=== PATIENT | male | born 2000 | race Caucasian/White ===

== ENCOUNTER 2023-12-29 16:52 | Inpatient (IN) ==
[2023-12-29] MEDS: SODIUM CHLORIDE 0.9% 1,000 ML IV SCH ×2 (17:53→22:32)
--- NOTE | 2023-12-29 18:04 | XRay Report ---
XR chest 1V portable HISTORY: 23 years-old Male syncope acute syncope COMPARISON: None TECHNIQUE: AP view of the chest FINDINGS: Cardiomediastinal and hilar silhouettes are within normal limits. No pneumothorax, pleural effusion o r airspace consolidation. Bones of the chest appear grossly intact. IMPRESSION: No acute process. ACT 112: Negative or not required by law. The above report was generated using voice recognition software. It may contain grammatical, syntax o r spelling errors. Electronically signed by: Chito Myles M.D. 12/29/2023 6:02 PM
--- NOTE | 2023-12-29 18:08 | Emergency Department Note ---
Impression & Plan Upper GI bleed, Pre-syncope ED Provider Note NAME: GALLITO QUIJANO AGE: 23 SEX: M : 2000 ARRIVES VIA: Ambulance INFORMANT: Patient, ED PROVIDER(S): Aieme Lopez MD CHIEF COMPLAINT: Syncope/diarrhea HPI: This is a 23-year-old male with history of gastric ulcers, ADHD presenting for syncope. Patient states that he started with nausea and vomiting since last . He was at home and feeling better, trouble with back or Dodie. Last night began having episodes of diarrhea. He notes that send he had 1 episode of what appeared to be black loose stools. He then had 3 episodes total today. He went to [facility] to be seen and was being evaluated he thinks that he passed out for about 3 seconds. He said he felt hot while he was in the building, took over the sweatshirt and then noticed he felt a warm sensation after feeling lightheaded. He then passed out for 3 seconds was cautioned not hit his head. No chest pain or shortness of breath. No palpitations. ROS: See above HPI for pertinent positives & negatives. A total of 10 systems reviewed and were otherwise negative. PAST MEDICAL HISTORY: See Below PAST SURGICAL HISTORY: See Below FAMILY HISTORY: See Below SOCIAL HISTORY: See Below HOME MEDICATIONS: See Below ALLERGIES: See Below VITALS: See Below PHYSICAL EXAMINATION: General: resting comfortably in no acute distress Head: Normocephalic and atraumatic Eyes: Normal inspection, extraocular muscles intact Ear, nose, throat: Normal external exam Neck: Normal range of motion Respiratory: lungs clear to auscultation bilaterally Cardiovascular: Regular rate/rhythm, no murmur GI: soft, nontender, no guarding or rebound Extremities: nontender, moves all extremities Neuro: The patient awake and alert, appropriately conversive, no focal deficits, symmetric faces Skin: Warm, dry, and intact MEDICAL DECISION MAKING: This is a 21-year-old male with history of gastric ulcers and GERD presenting for syncope. Patient thinks he may have had a presyncopal episode here but did not actually pass out. He otherwise was resting/sitting during both episodes of syncope. He notes diarrhea. He has felt better after getting fluids at [facility]. -Patient's blood work is reviewed showing an hemoglobin of 11.9, a 4+ point drop since his last visit to the ER at hemoglobin of 16 previously -Patient is Hemoccult positive on rectal exam -Chest Xray independently interpreted by me showing no pneumothorax, focal opacity, or pleural effusions. -Patient blood work otherwise reveals no electrolyte disturbances, BUN is significantly elevated at 47 concerning for GI bleed -Will give IV Protonix at this time -Otherwise discussed case with Dr. Alejandre who recommends admission and he will see the patient tomorrow in consultation -Patient accepted to hospitalist service for GI bleed with syncope Differential diagnosis: Blood loss anemia, GI bleed, orthostatic syncope ER treatment provided: See below Diagnostics interpreted by me: ECG: None Cardiac Monitoring: An order was placed for continuous cardiac monitoring. The monitor shows a rate of 101 with sinus rhythm. Laboratory studies: As stated above and show below. Imaging studies: See below. Past Med/Surg History Medical History (Updated 12/29/23 @ 22:33 by Aimee Lopez MD) ADHD GERD (gastroesophageal reflux disease) Pre-syncope Upper GI bleed Social History Smoking Status: Never smoker Tobacco Type: E-cigarettes / Vaping Hx Alcohol Use: Yes Hx Substance Use: No Preferred Language: Sinhala Security Manager Required: No Beliefs That Will Affect Care: None Current Living Situation: Other Current Living Situation Comment: room mates Feels Safe at Home: Yes Allergies Allergies Allergy/AdvReac Type Severity Reaction Status Date / Time Fish Containing Products Allergy Severe Anaphylaxis Verified 12/29/23 19:05 shellfish derived Allergy Severe Anaphylaxis Verified 12/29/23 19:05 Penicillins Allergy Unknown HAPPENED Verified 12/29/23 19:05 AN INFANT Home Meds Home Medications Medication Instructions Recorded Confirmed dextroamphetamine-amphetamine 10 10 mg PO QPM PRN HIGH STRESS DAYS 08/04/23 12/29/23 mg tablet (Adderall) dextroamphetamine-amphetamine ER 25 mg PO QAM 08/04/23 12/29/23 25 mg 24hr capsule,extend release epinephrine 0.3 mg/0.3 mL 0.3 mg IM DIRECTED PRN Allergic 12/29/23 12/29/23 injection, auto-injector Reaction Results & Data (ED) Vital Signs Vital Signs - 24 hr 12/29/23 17:00 12/29/23 17:04 12/29/23 17:09 Temperature 36.8 C Temperature Source Oral Pulse Rate 96 H 101 H Pulse Rate [Apical] 101 H Pulse Rate from SpO2 Sensor 102 H Pulse Rhythm [Apical] Regular Pulse Strength [Apical] Normal Respiratory Rate 16 18 21 Respiratory Effort / Characteristics Non-Labored Spontaneous Non-Labored Spontaneous Respiratory Depth Normal Normal Respiratory Pattern Regular Blood Pressure 123/88 Blood Pressure [Right Arm] 123/88 Blood Pressure Mean 99 Blood Pressure Mean [Right Arm] 99 Blood Pressure Position Sitting Blood Pressure Position [Right Arm] Sitting Pulse Oximetry 100 99 100 Oxygen Delivery Method Room Air Room Air Sepsis Recent Fever Within 48 Hours No Sepsis New/Unexplained Change in Mental Status No Sepsis Action Taken by Nursing No Action Required 12/29/23 17:10 12/29/23 17:19 12/29/23 17:20 Temperature Temperature Source Pulse Rate 104 H 96 H 83 Pulse Rate [Apical] Pulse Rate from SpO2 Sensor 104 H 83 Pulse Rhythm [Apical] Pulse Strength [Apical] Respiratory Rate 22 14 Respiratory Effort / Characteristics Respiratory Depth Respiratory Pattern Blood Pressure Blood Pressure [Right Arm] Blood Pressure Mean Blood Pressure Mean [Right Arm] Blood Pressure Position Blood Pressure Position [Right Arm] Pulse Oximetry 100 99 Oxygen Delivery Method Sepsis Recent Fever Within 48 Hours Sepsis New/Unexplained Change in Mental Status Sepsis Action Taken by Nursing 12/29/23 17:30 12/29/23 17:40 12/29/23 17:50 Temperature Temperature Source Pulse Rate 91 H 98 H 99 H Pulse Rate [Apical] Pulse Rate from SpO2 Sensor 90 95 H 99 H Pulse Rhythm [Apical] Pulse Strength [Apical] Respiratory Rate 20 22 24 Respiratory Effort / Characteristics Respiratory Depth Respiratory Pattern Blood Pressure Blood Pressure [Right Arm] Blood Pressure Mean Blood Pressure Mean [Right Arm] Blood Pressure Position Blood Pressure Position [Right Arm] Pulse Oximetry 99 100 100 Oxygen Delivery Method Sepsis Recent Fever Within 48 Hours Sepsis New/Unexplained Change in Mental Status Sepsis Action Taken by Nursing 12/29/23 18:00 12/29/23 18:10 12/29/23 18:20 Temperature Temperature Source Pulse Rate 92 H 102 H 104 H Pulse Rate [Apical] Pulse Rate from SpO2 Sensor 93 H 102 H 105 H Pulse Rhythm [Apical] Pulse Strength [Apical] Respiratory Rate 24 21 21 Respiratory Effort / Characteristics Respiratory Depth Respiratory Pattern Blood Pressure Blood Pressure [Right Arm] Blood Pressure Mean Blood Pressure Mean [Right Arm] Blood Pressure Position Blood Pressure Position [Right Arm] Pulse Oximetry 100 100 100 Oxygen Delivery Method Sepsis Recent Fever Within 48 Hours Sepsis New/Unexplained Change in Mental Status Sepsis Action Taken by Nursing 12/29/23 18:37 12/29/23 18:40 12/29/23 18:45 Temperature Temperature Source Pulse Rate 107 H 104 H Pulse Rate [Apical] 99 H Pulse Rate from SpO2 Sensor 104 H Pulse Rhythm [Apical] Pulse Strength [Apical] Respiratory Rate 22 20 18 Respiratory Effort / Characteristics Non-Labored Spontaneous Respiratory Depth Normal Respiratory Pattern Blood Pressure Blood Pressure [Right Arm] 141/86 H Blood Pressure Mean Blood Pressure Mean [Right Arm] 104 Blood Pressure Position Blood Pressure Position [Right Arm] Sitting Pulse Oximetry 100 100 Oxygen Delivery Method Room Air Sepsis Recent Fever Within 48 Hours Sepsis New/Unexplained Change in Mental Status Sepsis Action Taken by Nursing 12/29/23 18:45 12/29/23 18:45 12/29/23 18:50 Temperature Temperature Source Pulse Rate 99 H 103 H Pulse Rate [Apical] Pulse Rate from SpO2 Sensor 99 H 103 H Pulse Rhythm [Apical] Pulse Strength [Apical] Respiratory Rate 20 19 Respiratory Effort / Characteristics Respiratory Depth Respiratory Pattern Blood Pressure 141/86 H Blood Pressure [Right Arm] Blood Pressure Mean 94 Blood Pressure Mean [Right Arm] Blood Pressure Position Blood Pressure Position [Right Arm] Pulse Oximetry 100 100 Oxygen Delivery Method Sepsis Recent Fever Within 48 Hours Sepsis New/Unexplained Change in Mental Status Sepsis Action Taken by Nursing 12/29/23 19:00 12/29/23 19:10 12/29/23 19:27 Temperature Temperature Source Pulse Rate 125 H 104 H 117 H Pulse Rate [Apical] Pulse Rate from SpO2 Sensor Pulse Rhythm [Apical] Pulse Strength [Apical] Respiratory Rate 23 24 14 Respiratory Effort / Characteristics Respiratory Depth Respiratory Pattern Blood Pressure Blood Pressure [Right Arm] Blood Pressure Mean Blood Pressure Mean [Right Arm] Blood Pressure Position Blood Pressure Position [Right Arm] Pulse Oximetry Oxygen Delivery Method Sepsis Recent Fever Within 48 Hours Sepsis New/Unexplained Change in Mental Status Sepsis Action Taken by Nursing 12/29/23 19:27 12/29/23 19:30 12/29/23 19:40 Temperature Temperature Source Pulse Rate 96 H 101 H Pulse Rate [Apical] Pulse Rate from SpO2 Sensor 96 H 100 H Pulse Rhythm [Apical] Pulse Strength [Apical] Respiratory Rate 21 16 Respiratory Effort / Characteristics Respiratory Depth Respiratory Pattern Blood Pressure 125/78 Blood Pressure [Right Arm] Blood Pressure Mean 90 Blood Pressure Mean [Right Arm] Blood Pressure Position Blood Pressure Position [Right Arm] Pulse Oximetry 100 100 Oxygen Delivery Method Sepsis Recent Fever Within 48 Hours Sepsis New/Unexplained Change in Mental Status Sepsis Action Taken by Nursing 12/29/23 19:50 12/29/23 20:00 12/29/23 20:00 Temperature Temperature Source Pulse Rate 102 H 104 H Pulse Rate [Apical] Pulse Rate from SpO2 Sensor 101 H 101 H Pulse Rhythm [Apical] Pulse Strength [Apical] Respiratory Rate 20 20 Respiratory Effort / Characteristics Respiratory Depth Respiratory Pattern Blood Pressure 123/85 Blood Pressure [Right Arm] Blood Pressure Mean 93 Blood Pressure Mean [Right Arm] Blood Pressure Position Blood Pressure Position [Right Arm] Pulse Oximetry 100 100 Oxygen Delivery Method Sepsis Recent Fever Within 48 Hours Sepsis New/Unexplained Change in Mental Status Sepsis Action Taken by Nursing 12/29/23 20:10 12/29/23 20:20 12/29/23 20:30 Temperature Temperature Source Pulse Rate 99 H 101 H 97 H Pulse Rate [Apical] Pulse Rate from SpO2 Sensor 100 H 102 H 99 H Pulse Rhythm [Apical] Pulse Strength [Apical] Respiratory Rate 22 18 21 Respiratory Effort / Characteristics Respiratory Depth Respiratory Pattern Blood Pressure Blood Pressure [Right Arm] Blood Pressure Mean Blood Pressure Mean [Right Arm] Blood Pressure Position Blood Pressure Position [Right Arm] Pulse Oximetry 99 100 100 Oxygen Delivery Method Sepsis Recent Fever Within 48 Hours Sepsis New/Unexplained Change in Mental Status Sepsis Action Taken by Nursing 12/29/23 20:40 Temperature Temperature Source Pulse Rate 93 H Pulse Rate [Apical] Pulse Rate from SpO2 Sensor 101 H Pulse Rhythm [Apical] Pulse Strength [Apical] Respiratory Rate 19 Respiratory Effort / Characteristics Respiratory Depth Respiratory Pattern Blood Pressure 109/87 Blood Pressure [Right Arm] Blood Pressure Mean 94 Blood Pressure Mean [Right Arm] Blood Pressure Position Blood Pressure Position [Right Arm] Pulse Oximetry 100 Oxygen Delivery Method Room Air Sepsis Recent Fever Within 48 Hours Sepsis New/Unexplained Change in Mental Status Sepsis Action Taken by Nursing Laboratory Data 12/29/23 17:16 12/29/23 17:16 Lab Results 12/29/23 12/29/23 12/29/23 Range/Units 17:16 17:19 17:46 WBC 8.54 (4.8-10.8) K/ul RBC 4.15 L (4.70-6.10) M/uL Hgb 11.9 L (14.0-18.0) g/dl Hct 34.8 L (42.0-52.0) % MCV 83.9 (80.0-100.0) fL MCH 28.7 (25.0-34.0) pg MCHC 34.2 (32.0-36.0) g/dL RDW Std Deviation 36.6 (36.4-46.3) fL RDW Coeff of [place] 12.0 (11.5-14.5) % Plt Count 203 (130-400) K/uL MPV 11.0 (9.4-12.4) fL Immature Gran % (Auto) 0.8 % Neut % (Auto) 73.9 % Lymph % (Auto) 18.3 % [place] % (Auto) 5.4 % Eos % (Auto) 0.8 % Baso % (Auto) 0.8 % Neut # (Auto) 6.31 (1.40-6.50) K/uL Lymph # (Auto) 1.56 (1.20-3.40) K/uL [place] # (Auto) 0.46 (0.11-0.59) K/uL Eos # (Auto) 0.07 (0.00-0.50) K/uL Baso # (Auto) 0.07 (0.00-0.20) K/uL Immature Gran # (Auto) 0.07 (0.01-0.20) K/uL PT 11.5 (9.0-12.0) Seconds INR 1.1 (0.9-1.1) Sodium 135 L (136-145) mmol/L Potassium 4.8 (3.5-5.1) mmol/L Chloride 105 (98-107) mmol/L Carbon Dioxide 25 (21-32) mmol/L Anion Gap 5 (3-11) BUN 47 H (6-23) mg/dl Creatinine 0.99 (0.6-1.4) mg/dl Est Cr Clr Drug Dosing 113.2 ml/min Est GFR ( Amer) 124.8 ml/min Est GFR (Non-Af Amer) 107.7 ml/min BUN/Creatinine Ratio 47.5 H (10-20) Glucose 83 (70-99(Fasting)) mg/dl POC Glucose 108 H (70-99) mg/dl Calcium 8.2 L (8.6-10.3) mg/dl Magnesium 1.8 (1.7-2.4) mg/dl Total Bilirubin 0.8 (0.2-1.0) mg/dl AST 17 (13-39) U/L ALT 19 (7-52) U/L Alkaline Phosphatase 45 (34-104) U/L Troponin I High Sens 2.3 (0-20) pg/ml Total Protein 6.8 (6.0-8.3) gm/dl Albumin 4.4 (3.4-5.0) gm/dl Globulin 2.4 L (2.5-4.0) gm/dl Albumin/Globulin Ratio 1.8 (0.9-2) Urine Color Urine Appearance (Clear) Urine pH (4.5-7.5) Ur Specific [place] (1.000-1.030) Urine Protein (Negative) Urine Glucose (UA) (Negative) Urine Ketones (Negative) Urine Blood (Negative) Urine Nitrite (Negative) Urine Bilirubin (Negative) Urine Urobilinogen (Negative) Ur Leukocyte Esterase (Negative) Blood Type O Positive Antibody Screen NEGATIVE 12/29/23 Range/Units 18:30 WBC (4.8-10.8) K/ul RBC (4.70-6.10) M/uL Hgb (14.0-18.0) g/dl Hct (42.0-52.0) % MCV (80.0-100.0) fL MCH (25.0-34.0) pg MCHC (32.0-36.0) g/dL RDW Std Deviation (36.4-46.3) fL RDW Coeff of [place] (11.5-14.5) % Plt Count (130-400) K/uL MPV (9.4-12.4) fL Immature Gran % (Auto) % Neut % (Auto) % Lymph % (Auto) % [place] % (Auto) % Eos % (Auto) % Baso % (Auto) % Neut # (Auto) (1.40-6.50) K/uL Lymph # (Auto) (1.20-3.40) K/uL [place] # (Auto) (0.11-0.59) K/uL Eos # (Auto) (0.00-0.50) K/uL Baso # (Auto) (0.00-0.20) K/uL Immature Gran # (Auto) (0.01-0.20) K/uL PT (9.0-12.0) Seconds INR (0.9-1.1) Sodium (136-145) mmol/L Potassium (3.5-5.1) mmol/L Chloride (98-107) mmol/L Carbon Dioxide (21-32) mmol/L Anion Gap (3-11) BUN (6-23) mg/dl Creatinine (0.6-1.4) mg/dl Est Cr Clr Drug Dosing ml/min Est GFR ( Amer) ml/min Est GFR (Non-Af Amer) ml/min BUN/Creatinine Ratio (10-20) Glucose (70-99(Fasting)) mg/dl POC Glucose (70-99) mg/dl Calcium (8.6-10.3) mg/dl Magnesium (1.7-2.4) mg/dl Total Bilirubin (0.2-1.0) mg/dl AST (13-39) U/L ALT (7-52) U/L Alkaline Phosphatase (34-104) U/L Troponin I High Sens (0-20) pg/ml Total Protein (6.0-8.3) gm/dl Albumin (3.4-5.0) gm/dl Globulin (2.5-4.0) gm/dl Albumin/Globulin Ratio (0.9-2) Urine Color Yellow Urine Appearance Clear (Clear) Urine pH 6.0 (4.5-7.5) Ur Specific [place] 1.020 (1.000-1.030) Urine Protein Negative (Negative) Urine Glucose (UA) Negative (Negative) Urine Ketones 1+ H (Negative) Urine Blood Negative (Negative) Urine Nitrite Negative (Negative) Urine Bilirubin Negative (Negative) Urine Urobilinogen Negative (Negative) Ur Leukocyte Esterase Negative (Negative) Blood Type Antibody Screen Administered Medications Discontinued Medications Sodium Chloride (Nss) 1,000 mls @ 999 mls/hr IV .Q1H1M ALISHA Stop: 12/29/23 18:30 Last Infusion: 12/29/23 19:01 Dose: Infused Documented By: Admin: 12/29/23 17:53 Dose: 999 mls/hr Documented By: JONAHTAN Pantoprazole Sodium 40 mg/ (Syringe) 10 mls @ 5 mls/min IV NOW ONE Stop: 12/29/23 19:09 Last Admin: 12/29/23 19:27 Dose: 5 mls/min Documented By: AYLIN Imaging Data Radiologist's Impression: Chest X-Ray 12/29/23 17:25 XR chest 1V portable HISTORY: 23 years-old Male syncope acute syncope COMPARISON: None TECHNIQUE: AP view of the chest FINDINGS: Cardiomediastinal and hilar silhouettes are within normal limits. No pneumothorax, pleural effusion or airspace consolidation. Bones of the chest appear grossly intact. IMPRESSION: No acute process. ACT 112: Negative or not required by law. The above report was generated using voice recognition software. It may contain grammatical, syntax or spelling errors. Electronically signed by: Chito Myles M.D. 12/29/2023 6:02 PM Discharge Plan Visit Data Chief Complaint: Syncope Stated Complaint: AB PAIN, GI SYMTOMS ED Provider: Aimee Lopez Discharge Problem: Upper GI bleed, Pre-syncope Patient Disposition: Admitted As Inpatient Discharge Instructions Interventions: ED Discharge Assessment Last Done: 12/29/23 21:44
[2023-12-29 18:32] LABS: Basophils # (auto) 0.07 K/uL (0.00-0.20); Basophils % (auto) 0.8 %; Eosinophils # (auto) 0.07 K/uL (0.00-0.50); Eosinophils % (auto) 0.8 %; Hematocrit (blood only) 34.8 % (42.0-52.0); Hemoglobin 11.9 g/dl (14.0-18.0); Immature Granulocytes # (auto) 0.07 K/uL (0.01-0.20); Immature Granulocytes % (auto) 0.8 %; Lymphocytes # (auto) 1.56 K/uL (1.20-3.40); Lymphocytes % (auto) 18.3 %; Mean Corpuscular Hemoglobin 28.7 pg (25.0-34.0); Mean Corpuscular Hgb Conc 34.2 g/dL (32.0-36.0); Mean Corpuscular Volume 83.9 fL (80.0-100.0); Monocytes # (auto) 0.46 K/uL (0.11-0.59); Monocytes % (auto) 5.4 %; Neutrophils # (auto) 6.31 K/uL (1.40-6.50); Neutrophils % (auto) 73.9 %; Platelet Count 203 K/uL (130-400); RDW Standard Deviation 36.6 fL (36.4-46.3); Red Blood Count 4.15 M/uL (4.70-6.10); White Blood Count 8.54 K/ul (4.8-10.8)
[2023-12-29 18:45] LABS: Albumin Globulin Ratio 1.8 (0.9-2); Albumin Level 4.4 gm/dl (3.4-5.0); BUN Creatinine Ratio 47.5 (10-20); Bilirubin,Total 0.8 mg/dl (0.2-1.0); Calcium 8.2 mg/dl (8.6-10.3); Creatinine Clr Calc Pharmacy 113.2 ml/min; Est GFR (African American) 124.8 ml/min; Est GFR (Non-African American) 107.7 ml/min; Globulin 2.4 gm/dl (2.5-4.0); Magnesium 1.8 mg/dl (1.7-2.4); Potassium 4.8 mmol/L (3.5-5.1); Total Protein 6.8 gm/dl (6.0-8.3)
[2023-12-29 18:49] LABS: Troponin I High Sensitivity 2.3 pg/ml (0-20)
[2023-12-29 18:55] LABS: INR 1.1 (0.9-1.1); Prothrombin Time 11.5 Seconds (9.0-12.0)
[2023-12-29 19:00] LABS: Appearance Urine Clear (Clear); Bilirubin Urine Negative (Negative); Blood Urine Negative (Negative); Color Urine Yellow; Glucose Urine UA Negative (Negative); Ketones Urine 1+ (Negative); Leukocyte Esterase Urine Negative (Negative); Nitrite Urine Negative (Negative); Protein Urine Negative (Negative); Urobilinogen Urine Negative (Negative)
[2023-12-29] MEDS: PANTOprazole 40 MG in SYRINGE 0 ML IV ONE (19:27)
--- NOTE | 2023-12-29 19:58 | History & Physical Report ---
"Date of Service December 29, 2023 Assessment & Plan (1) Upper GI bleed: (2) Pre-syncope: (3) ADHD: (4) GERD (gastroesophageal reflux disease): Plan Summary: Deyvi is a 23M with PMH of GERD, gastric ulcers, and ADHD (on Adderall) who presents for black, loose stools and a pre-syncopal episode and is being admitted for a presumed UGIB. ED Course: 1L NSS, IV Pantoprazole Upper GI Bleed | Hematemesis/Melanotic Stools * Potential esophageal ulcer, patient w/ odynophagia, hx of GERD, and dysphagia * Consideration also given to peptic ulcers vs Bibi silvia tear as patient notes hematemesis after episodes of repeated emesis * Hemodynamically stable but hypertensive/tachycardic * CBC indicated Hgb Drop from 16.2 to 11.9 * Hemoccult positive * Continue Fluid Resuscitation w/ mIVF, s/p 1L NSS in ED * Transfuse for Hgb < 7 or symptomatic anemia * Continue GI Ppx w/ IV Pantoprazole 40 mg BID * Patient not actively receiving any anticoagulants/antiplatelet medications, avoid chemical DVT Ppx * GI Consulted, Dr. Alejandre to see 12/29, appreciate recommendations Pre-Syncopal Event * Likely a/w of UGIB & acute blood loss anemia, management largely as above * Continue IVF * Monitor via telemetry Chronic Conditions: * ADHD - Continue home Adderall Code Status:Full Diet:NPO IVF:mIVF DVT PPx:SCD/ambulation CM: None Dispo: Tele History of Present Illness Chief Complaint: Pre-syncopal Episode Primary Care Provider: [facility] Deyvi is a 23M with PMH of gastric ulcers and ADHD (on Adderall) who presents for black, loose stools and a pre-syncopal episode and is being admitted for a presumed UGIB. ED Course: 1L NSS, IV Pantoprazole HPI: Last 12/24/23 started throwing up, thought he ate some bad food, noted he was throwing up small amounts of bright red blood. He went home to his parent's for the weekend (in [place], [place]) and remained nauseous though out the weekend. Today, he woke up and was having black diarrhea (4-5 episodes today). When he went to [facility] due to the black stools, and noted he became very hot/diaphoretic and had a pre-syncopal event, did not fully pass out or fall and hit his head. Received fluids at [facility] but was sent from [facility] to [facility] via ambulance. Feels like he has been increasingly bloated the last 2-3 days with increasing upper abdominal pressure. No lightheadedness or dizziness prior to presenting to [facility]. Notes he has not been eating very much, and hasn't eaten more than a protein bar today. Continued to hydrate well. Notes hx of GERD/Gastric ulcers, had EGD in 11/06/2020 - they found unspecified ulcers at this time, but it was said to be minimal. Took PO medication for 30 days and things have been good since then. Has had no symptoms since 2020. Had gotten EGD in 2020 because he was feeling like things are getting stuck in his throat. No prior episodes of dark black stools before. Will have episodes of hematemesis he has a gagging/dysphagia episode where he throws up/coughs alot. He notes that he can tell when its going to happen because his throat will feel raw. Allergies: Severe anaphylactic fish allergy, requires EpiPen Allergies Allergy/AdvReac Type Severity Reaction Status Date / Time Fish Containing Products Allergy Severe Anaphylaxis Verified 12/29/23 19:05 shellfish derived Allergy Severe Anaphylaxis Verified 12/29/23 19:05 Penicillins Allergy Unknown HAPPENED Verified 12/29/23 19:05 AN Home Medications Medication Instructions Recorded Confirmed Type dextroamphetamine-amphetamine 10 10 mg PO QPM PRN HIGH STRESS DAYS 08/04/23 12/29/23 History mg tablet (Adderall) dextroamphetamine-amphetamine ER 25 mg PO QAM 08/04/23 12/29/23 History 25 mg 24hr capsule,extend release epinephrine 0.3 mg/0.3 mL 0.3 mg IM DIRECTED PRN Allergic 12/29/23 12/29/23 History injection, auto-injector Reaction Past Med/Surg History Medical History Encounter for pre-operative examination ADHD GERD (gastroesophageal reflux disease) Pre-syncope Upper GI bleed Social History Smoking Status: Never smoker Tobacco Type: E-cigarettes / Vaping Hx Alcohol Use: Yes Hx Substance Use: No Preferred Language: Sami Communication Ability: Effective Shellfish Processing Machine Tender Required: No Beliefs That Will Affect Care: None Current Living Situation: Other Current Living Situation Comment: room mates Feels Safe at Home: Yes Assistive Devices: None Physical Exam Physical Exam: Gen: NAD, alert, interactive HEENT: Supple, no LAD, no thyromegaly, no JVD Resp:Non-labored, no wheezing/rhonchi/rales, CTAB CV: tachycardic, regular rate, normal S1/S2, no M/R/G Abd: Soft, non-distended, no TTP, normoactive bowels, no masses Extr: 2+ dp bilaterally, no edema Skin: No rashes lesions or erythema Results & Data Results & Data Vital Signs (Past 12 Hours) Vital Signs Temp Pulse Pulse Resp BP BP Pulse Ox 12/29/23 18:45 99 H 18 141/86 H 100 12/29/23 17:19 96 H 12/29/23 17:04 36.8 C 96 H 18 123/88 99 12/29/23 17:00 101 H 16 123/88 100 O2 Del Method 12/29/23 18:45 Room Air 12/29/23 17:19 12/29/23 17:04 Room Air 12/29/23 17:00 Room Air Supervising Physician Co-Signing Physician Notes Attending addendum: I have physically seen this patient, have supervised the medical residents activities, and agree with the H&P unless as otherwise noted. Assessment and Plan: Upper GI bleed/history of gastric ulcers- Differential including but not limited to: Esophageal ulcers, gastric ulcers, gastritis, esophagitis, Bibi-Carlson tear Admit to telemetry bed N.p.o. No history of significant alcohol use/abuse Protonix 40 mg IV twice daily H&H every 4 hours Type and screen Hemoglobin 11.9 on admission, with most recent prior 16.2 Vital signs/blood pressure/heart rate stable IV fluids as noted, status post 1 L normal saline from the ED, and to receive additional 1 L bolus now, then 80 mL/h Consult gastroenterology ADHD- Hold Adderall n.p.o. Resident Activity Tracking Resident Involvement: Resident Care Provided Care Provided: Adult Hospital Medicine (Night)"
[2023-12-29] MEDS ORDERED: EPINEPHrine ADULT AUTO-INJECT 0.3 MG SYR IM PRN (22:14)
[2023-12-29] MEDS ORDERED: ACETAMINOPHEN 325 MG TAB PO PRN (22:14)
[2023-12-29] MEDS ORDERED: ONDANSETRON INJ 2 MG/ML 2 ML VIAL IV PRN (22:14)
[2023-12-29] MEDS: PANTOprazole 40 MG in SYRINGE 0 ML IV SCH (22:53)
[2023-12-30] MEDS: DEXTROAMPHETAMINE/AMPHETAMINE ER 5 MG CAP PO SCH (05:42)
[2023-12-30] MEDS: DEXTROAMPHETAMINE/AMPHETAMINE ER 10 MG CAP PO SCH (05:42)
--- NOTE | 2023-12-30 07:39 | Hospitalist Progress Note ---
Date of Service December 30, 2023 Assessment & Plan (1) Upper GI bleed: Plan: Summary: Deyvi is a 23M with PMH of GERD, gastric ulcers, and ADHD (on Adderall) who presents for black, loose stools and a pre-syncopal episode and is being admitted for a presumed UGIB. Reported melanic stools x 4 on 12/28, hematemesis x 1. * Patient reported prior hx EGD, inquired for results and his mother sent these given questioned about hx of possible eosinophilic asthma given prior ER visit w/ swelling/shellfish and reports of feeling like food will get stuck at times (resolved with sip of water) * Review prior EGD result sent by his mother --> DID have hx eosinophilic e sophagitis, never had follow up or believes had dilation in the past. Notified GI prior to EGD regarding such * He denied any recent heavy NSAID use but did report he took some Advil with r ecent strep infection ~1 week after THON. Last etoh ~1-2 days ago but reported hadn't drank in about a month and a half prior to that but was drinking 1- 2x/weekly On admission, tachycardic/HTN, LFTs wnl. WBC 8.5k, UA w/ 1+ ketones. CXR without acute process. No pleuritic CP or hypoxia to suggest PE Hgb 11.9 on admission (baseline ~16) Fecal occult POSITIVE s/p 1L NSS in ER, Protonix IV x 1 1L IVF overnight ordered, placed on NS @ 80cc/hr while NPO this morinng for EGD Continue Protonix IV BID NPO IVF NS @ 80cc/hr while NPO Hgb 10.2 on AM labs, suspect some aspect of dilution from IVF on admission, no further bleeding reported GI consulted s/p EGD with Dr Castano 12/29 -- two medium non-bleeding aleena carlson tears, one with stigmata of recent bleeding found. Injected with epi for hemostasis. These tears were in position of "kissing ulcers" seen with pill ulcers. -- Impression: esophageal mucosal changes seconday to eosinophilic esophagitis, aleena-carlson tear injected. normal stomach Recs to continue PPI BID, added liquid carafate QID CM navigator arranging outpt f/u allergy/immunology given his EoE for further work up Clear liquid diet ordered, monitoring overnight Labs in AM Unfortunately will not be able to travel to [place] tomorrow but is hopeful for discharge if stable. Will need strict avoidance of NSAIDs and alcohol at discharge (2) Pre-syncope: Plan: suspected 2nd to dehydration/from nausea/vomiting/diarrhea, Aleena carlson tear as above Had been NSR/sinus tachycardia on monitor. No CP/SOB reported IVF/Protonix as above no further syncope reported and has been ambulating to the bathroom this morning continued telemetry monitoring overnight (3) Aleena-Carlson tear: Plan: as above, s/p EGD with GI and injection with epi continue PPI, carafate added and avoidance of alcohol/NSAIDs encouraged (4) Eosinophilic esophagitis: Plan: hx of such on EGD from 2020 and has had on/off issues w/ feelings of meats getting stuck at times but improved recently. continue PPI BID at dc as well as carafate evidence for ongoing EoE on EGD as above, arranging for allergy f/u at discharge w/ CM (5) GERD (gastroesophageal reflux disease): Plan: as above (6) ADHD: Plan: Continue home Adderall Plan DVT proph: SCDs, ambulation. chemoproph contraindicated given above. No evidence for DVT clear liquids post-EGD, monitoring overnight. potential dc tomorrow 12/30 Admission and Anticipated Discharge Date Admission Date: December 29, 2023 Supervising Physician Co-Signing Physician Notes The patient was not seen by me. The chart was reviewed. Case discussed with CINTIA Carrion. Agree with assessment and plan Subjective Patient evaluated this afternoon, resting in bed, no acute distress. Had been up multiple times to urinate, no syncope or dizziness reported. HR goes up to 100s w/ standing. No CP/SOb. Reported emesis x 1 w/ blood tinge but wasn't sure from possible irritation. Had been urinating and had mixed w/ liquid darkened/black stools x 4 yesterday, nothing today. CARE CONNECTOR, patient reports had some nausea/vomiting about 3-4 days prior, reports he has not taken any NSAIDs for long time as told not to. Last alcoholic drink ~1-2 days prior to admission and hadn't drank in about a month and a half prior (prior to that was about 1-2x/weekly). He reports prior ER visit for cross contamination/worries about fish w/ throat swelling and discussed prior EGD as reports had one done in the past. He reports occassional feeling like something getting stuck in his throat, improved with drink of water. Denied any throat pain. Inquired if ever had hx eosinophilic esophagitis -- his mom sent his prior EGD report -- confirmed hx eosinophilic esophagitis. Has not had any follow up since that scope, next appt in end of summer in [place], can see about local f/u. Will await results. He is supposed to go to [place] tomorrow, will see what EGD this afternoon shows. Planning for EGD this afternoon with Dr Castano, remains NPO at present time. Can have diet following pending results. Of note, patient does report he had recently been on antibiotics for strep throat, the week after thon. He may have taken a couple doses of advil during that time he reports but no excessive use. Results & Data Results & Data Vital Signs (Past 12 Hours) Vital Signs Temp Pulse Pulse Resp BP BP Pulse Ox 12/30/23 07:29 12/30/23 07:21 36.2 C L 90 18 101/58 L 96 12/30/23 07:12 64 12/30/23 03:56 36.5 C 99 H 18 104/67 98 12/30/23 01:53 107 H 12/29/23 22:02 36.5 C 101 H 18 119/79 100 12/29/23 21:44 12/29/23 20:40 93 H 19 109/87 100 12/29/23 20:30 97 H 21 100 12/29/23 20:20 101 H 18 100 12/29/23 20:10 99 H 22 99 12/29/23 20:00 123/85 12/29/23 20:00 104 H 20 100 12/29/23 19:50 102 H 20 100 12/29/23 19:40 101 H 16 100 O2 Del Method 12/30/23 07:29 Room Air 12/30/23 07:21 Room Air 12/30/23 07:12 12/30/23 03:56 Room Air 12/30/23 01:53 12/29/23 22:02 Room Air 12/29/23 21:44 Room Air 12/29/23 20:40 Room Air 12/29/23 20:30 12/29/23 20:20 12/29/23 20:10 12/29/23 20:00 12/29/23 20:00 12/29/23 19:50 12/29/23 19:40 PG Care Time/CCT Total # of Minutes Spent Total Time Spent with Patient: Total time spent is greater than 50% in coordination of care (as documented) at patient's floor/unit and/or counseling patient: Coding Level of Care Code 01819 SUB INP/OBS CARE 3/50MIN Diagnoses Upper GI bleed K92.2 Pre-syncope R55 Aleena-Carlson tear K22.6 Eosinophilic esophagitis K20.0 GERD (gastroesophageal reflux disease) K21.9 ADHD F90.9
--- NOTE | 2023-12-30 08:04 | Anesthesiology Consultation ---
Date of Service December 30, 2023 Assessment & Plan (1) Encounter for pre-operative examination: Chart Review Chart Review: Acceptable Risk for Surgery, Patient NOT seen in Pre Admission Testing and data entry processor initiated Consults Requested none Proposed Anesthesia Anesthesia Type: MAC History Surgery Operation Date: 12/30/23 16:30 Proposed Procedures p Esophagogastroduodenoscopy Dr. Hill Alejandre Jr, MD Height/Weight Height: 5 ft 8 in Weight: 70.3 kg Allergies Allergy/AdvReac Type Severity Reaction Status Date / Time Fish Containing Products Allergy Severe Anaphylaxis Verified 12/29/23 19:05 shellfish derived Allergy Severe Anaphylaxis Verified 12/29/23 19:05 Penicillins Allergy Unknown HAPPENED Verified 12/29/23 19:05 AN Medications Home Medications Medication Instructions Recorded Confirmed Last Taken dextroamphetamine-amphetamine 10 10 mg PO QPM PRN HIGH STRESS DAYS 08/04/23 12/29/23 Unknown mg tablet (Adderall) dextroamphetamine-amphetamine ER 25 mg PO QAM 08/04/23 12/29/23 12/29/23 25 mg 24hr capsule,extend release epinephrine 0.3 mg/0.3 mL 0.3 mg IM DIRECTED PRN Allergic 12/29/23 12/29/23 Unknown injection, auto-injector Reaction Active Medications Generic Name Dose Route Start Last Admin Trade Name Freq PRN Reason Stop Dose Admin Amphetamine/Dextroamphetamine 20 mg 12/30/23 07:00 12/30/23 05:42 Dextroamphetamine/Amphetamine Er 10 Mg Cap PO 01/13/24 06:59 Not Given Q24H ALISHA Amphetamine/Dextroamphetamine 5 mg 12/30/23 07:00 12/30/23 05:42 Dextroamphetamine/Amphetamine Er 5 Mg Cap PO 01/13/24 06:59 Not Given Q24H ALISHA Pantoprazole Sodium 40 mg/ 10 mls @ 5 mls/min 12/29/23 22:14 12/29/23 22:53 Syringe IV 01/28/24 22:13 5 mls/min BID ALISHA Administration Past Medical History Medical History (Updated 12/30/23 @ 08:03 by Byron Galindo MD) Encounter for pre-operative examination ADHD GERD (gastroesophageal reflux disease) Pre-syncope Upper GI bleed Social History Smoking Status: Never smoker Hx Alcohol Use: Yes alcohol intake frequency: a few times a week Hx Substance Use: No Physical Exam Vital Signs Last Vital Signs Temp 36.2 C L 12/30/23 07:21 Pulse 90 12/30/23 07:21 Resp 18 12/30/23 07:21 BP 101/58 L 12/30/23 07:21 Pulse Ox 96 12/30/23 07:21 O2 Del Method Room Air 12/30/23 07:29 Testing Laboratory Results 12/29/23 17:16 12/29/23 17:16 PT 11.5 Seconds (9.0-12.0) 12/29/23 17:16 INR 1.1 (0.9-1.1) 12/29/23 17:16 Urine Color Yellow 12/29/23 18:30 Urine Appearance Clear (Clear) 12/29/23 18:30 Urine pH 6.0 (4.5-7.5) 12/29/23 18:30 Ur Specific [place] 1.020 (1.000-1.030) 12/29/23 18:30 Urine Protein Negative (Negative) 12/29/23 18:30 Urine Glucose (UA) Negative (Negative) 12/29/23 18:30 Urine Ketones 1+ (Negative) H 12/29/23 18:30 Urine Nitrite Negative (Negative) 12/29/23 18:30 Ur Leukocyte Esterase Negative (Negative) 12/29/23 18:30 Blood Type O Positive 12/29/23 17:46 Antibody Screen NEGATIVE 12/29/23 17:46 Chest X-Ray Date: 12/29/23 XR chest 1V portable HISTORY: 23 years-old Male syncope acute syncope COMPARISON: None TECHNIQUE: AP view of the chest FINDINGS: Cardiomediastinal and hilar silhouettes are within normal limits. No pneumothorax, pleural effusion or airspace consolidation. Bones of the chest appear grossly intact. IMPRESSION: No acute process.
[2023-12-30] MEDS: SODIUM CHLORIDE 0.9% 500 ML IV SCH (08:06)
[2023-12-30 09:03] LABS: Hematocrit (blood only) 29.5 % (42.0-52.0); Hemoglobin 10.2 g/dl (14.0-18.0); Mean Corpuscular Hemoglobin 28.7 pg (25.0-34.0); Mean Corpuscular Hgb Conc 34.6 g/dL (32.0-36.0); Mean Corpuscular Volume 82.9 fL (80.0-100.0); Mean Platelet Volume 10.3 fL (9.4-12.4); Platelet Count 170 K/uL (130-400); RDW Coefficient of Variation 12.2 % (11.5-14.5); RDW Standard Deviation 37.5 fL (36.4-46.3); Red Blood Count 3.56 M/uL (4.70-6.10); White Blood Count 6.45 K/ul (4.8-10.8)
[2023-12-30 09:34] LABS: Albumin Globulin Ratio 1.8 (0.9-2); Albumin Level 3.8 gm/dl (3.4-5.0); BUN Creatinine Ratio 28.1 (10-20); Bilirubin,Total 1.1 mg/dl (0.2-1.0); Calcium 8.1 mg/dl (8.6-10.3); Creatinine Clr Calc Pharmacy 116.8 ml/min; Est GFR (African American) 129.5 ml/min; Est GFR (Non-African American) 111.8 ml/min; Globulin 2.1 gm/dl (2.5-4.0); Magnesium 1.8 mg/dl (1.7-2.4); Potassium 4.1 mmol/L (3.5-5.1); Total Protein 5.9 gm/dl (6.0-8.3)
[2023-12-30 10:06] LABS: Ferritin 72.9 ng/ml (8-388)
--- NOTE | 2023-12-30 13:48 | Gastrointestinal Consultation ---
Date of Consultation December 30, 2023 Assessment & Plan (1) Upper GI bleed: Pleasant man with hematemesis who needs EGD. Suspect Bibi Carlson tear. Differential includes normal things that cause UGI bleed. Procedure and risks for eGD discussed. He agrees. History of Present Illness Reason for Consultation: vomiting blood Attending Physician: Aristides Spear MD History of Present Illness 23 year old man who had some vomiting and then vomited bright red blood. He became weak and presented to the ER with a 4 gm drop in his H/H. He has had EGD before that showed EoE. He says he still has some difficulty swallowing. He doesn't know if he has ever been dilated Allergies Allergy/AdvReac Type Severity Reaction Status Date / Time Fish Containing Products Allergy Severe Anaphylaxis Verified 12/29/23 19:05 shellfish derived Allergy Severe Anaphylaxis Verified 12/29/23 19:05 Penicillins Allergy Unknown HAPPENED Verified 12/29/23 19:05 AN INFANT Home Medications Medication Instructions Recorded Confirmed Type dextroamphetamine-amphetamine 10 10 mg PO QPM PRN HIGH STRESS DAYS 08/04/23 12/29/23 History mg tablet (Adderall) dextroamphetamine-amphetamine ER 25 mg PO QAM 08/04/23 12/29/23 History 25 mg 24hr capsule,extend release epinephrine 0.3 mg/0.3 mL 0.3 mg IM DIRECTED PRN Allergic 12/29/23 12/29/23 History injection, auto-injector Reaction Patient History Medical History Encounter for pre-operative examination ADHD GERD (gastroesophageal reflux disease) Pre-syncope Upper GI bleed Social History Smoking Status: Never smoker Tobacco Type: E-cigarettes / Vaping Hx Alcohol Use: Yes Hx Substance Use: No Preferred Language: Maori Communication Ability: Effective Supervisor [employer] Finishing Required: No Beliefs That Will Affect Care: None Current Living Situation: Other Current Living Situation Comment: room mates Feels Safe at Home: Yes Assistive Devices: None Review of Systems Review of Systems: All systems reviewed & are unremarkable except as noted in HPI & below Physical Exam Physical Exam: Pleasant, somewhat pale Constitutional: WD/WN, vitals as above Neck: trachea midline, no thyromegaly Respiratory: normal respiratory effort, lungs clear to auscultation Cardiovascular: RRR, no murmur, no edema Gastrointestinal (Abdomen): normal bowel sounds, soft, nontender, no hepatosplenomegaly Musculoskeletal: Extremities: extremities normal to inspection Results & Data Vital Signs (Past 12 Hours) Vital Signs Temp Pulse Pulse Resp BP Pulse Ox O2 Del Method 12/30/23 13:15 37.0 C 74 16 126/73 99 Room Air 12/30/23 11:13 36.8 C 85 18 99/61 L 98 Room Air 12/30/23 08:06 114 H 12/30/23 07:29 Room Air 12/30/23 07:21 36.2 C L 90 18 101/58 L 96 Room Air 12/30/23 07:12 64 12/30/23 03:56 36.5 C 99 H 18 104/67 98 Room Air 12/30/23 01:53 107 H Laboratory Results 12/30/23 12/29/23 12/29/23 Range/Units 08:35 18:30 17:46 WBC 6.45 (4.8-10.8) K/ul RBC 3.56 L (4.70-6.10) M/uL Hgb 10.2 L (14.0-18.0) g/dl Hct 29.5 L (42.0-52.0) % MCV 82.9 (80.0-100.0) fL MCH 28.7 (25.0-34.0) pg MCHC 34.6 (32.0-36.0) g/dL RDW Std Deviation 37.5 (36.4-46.3) fL RDW Coeff of [place] 12.2 (11.5-14.5) % Plt Count 170 (130-400) K/uL MPV 10.3 (9.4-12.4) fL Immature Gran % (Auto) % Neut % (Auto) % Lymph % (Auto) % [place] % (Auto) % Eos % (Auto) % Baso % (Auto) % Neut # (Auto) (1.40-6.50) K/uL Lymph # (Auto) (1.20-3.40) K/uL [place] # (Auto) (0.11-0.59) K/uL Eos # (Auto) (0.00-0.50) K/uL Baso # (Auto) (0.00-0.20) K/uL Immature Gran # (Auto) (0.01-0.20) K/uL PT (9.0-12.0) Seconds INR (0.9-1.1) Sodium 137 (136-145) mmol/L Potassium 4.1 (3.5-5.1) mmol/L Chloride 108 H (98-107) mmol/L Carbon Dioxide 25 (21-32) mmol/L Anion Gap 4 (3-11) BUN 27 H D (6-23) mg/dl Creatinine 0.96 (0.6-1.4) mg/dl Est Cr Clr Drug Dosing 116.8 ml/min Est GFR ( Amer) 129.5 ml/min Est GFR (Non-Af Amer) 111.8 ml/min BUN/Creatinine Ratio 28.1 H (10-20) Glucose 84 (70-99(Fasting)) mg/dl POC Glucose (70-99) mg/dl Calcium 8.1 L (8.6-10.3) mg/dl Magnesium 1.8 (1.7-2.4) mg/dl Iron 126 (35-175) mcg/dl TIBC 283 (250-450) mcg/dl Unsaturated IBC 157 (155-355) mcg/dl Transferrin % Sat 45 (20-50) % Ferritin 72.9 (8-388) ng/ml Total Bilirubin 1.1 H (0.2-1.0) mg/dl AST 17 (13-39) U/L ALT 18 (7-52) U/L Alkaline Phosphatase 35 (34-104) U/L Troponin I High Sens (0-20) pg/ml Total Protein 5.9 L (6.0-8.3) gm/dl Albumin 3.8 (3.4-5.0) gm/dl Globulin 2.1 L (2.5-4.0) gm/dl Albumin/Globulin Ratio 1.8 (0.9-2) Urine Color Yellow Urine Appearance Clear (Clear) Urine pH 6.0 (4.5-7.5) Ur Specific [place] 1.020 (1.000-1.030) Urine Protein Negative (Negative) Urine Glucose (UA) Negative (Negative) Urine Ketones 1+ H (Negative) Urine Blood Negative (Negative) Urine Nitrite Negative (Negative) Urine Bilirubin Negative (Negative) Urine Urobilinogen Negative (Negative) Ur Leukocyte Esterase Negative (Negative) Blood Type O Positive Antibody Screen NEGATIVE 12/29/23 12/29/23 Range/Units 17:19 17:16 WBC 8.54 (4.8-10.8) K/ul RBC 4.15 L (4.70-6.10) M/uL Hgb 11.9 L (14.0-18.0) g/dl Hct 34.8 L (42.0-52.0) % MCV 83.9 (80.0-100.0) fL MCH 28.7 (25.0-34.0) pg MCHC 34.2 (32.0-36.0) g/dL RDW Std Deviation 36.6 (36.4-46.3) fL RDW Coeff of [place] 12.0 (11.5-14.5) % Plt Count 203 (130-400) K/uL MPV 11.0 (9.4-12.4) fL Immature Gran % (Auto) 0.8 % Neut % (Auto) 73.9 % Lymph % (Auto) 18.3 % [place] % (Auto) 5.4 % Eos % (Auto) 0.8 % Baso % (Auto) 0.8 % Neut # (Auto) 6.31 (1.40-6.50) K/uL Lymph # (Auto) 1.56 (1.20-3.40) K/uL [place] # (Auto) 0.46 (0.11-0.59) K/uL Eos # (Auto) 0.07 (0.00-0.50) K/uL Baso # (Auto) 0.07 (0.00-0.20) K/uL Immature Gran # (Auto) 0.07 (0.01-0.20) K/uL PT 11.5 (9.0-12.0) Seconds INR 1.1 (0.9-1.1) Sodium 135 L (136-145) mmol/L Potassium 4.8 (3.5-5.1) mmol/L Chloride 105 (98-107) mmol/L Carbon Dioxide 25 (21-32) mmol/L Anion Gap 5 (3-11) BUN 47 H (6-23) mg/dl Creatinine 0.99 (0.6-1.4) mg/dl Est Cr Clr Drug Dosing 113.2 ml/min Est GFR ( Amer) 124.8 ml/min Est GFR (Non-Af Amer) 107.7 ml/min BUN/Creatinine Ratio 47.5 H (10-20) Glucose 83 (70-99(Fasting)) mg/dl POC Glucose 108 H (70-99) mg/dl Calcium 8.2 L (8.6-10.3) mg/dl Magnesium 1.8 (1.7-2.4) mg/dl Iron (35-175) mcg/dl TIBC (250-450) mcg/dl Unsaturated IBC (155-355) mcg/dl Transferrin % Sat (20-50) % Ferritin (8-388) ng/ml Total Bilirubin 0.8 (0.2-1.0) mg/dl AST 17 (13-39) U/L ALT 19 (7-52) U/L Alkaline Phosphatase 45 (34-104) U/L Troponin I High Sens 2.3 (0-20) pg/ml Total Protein 6.8 (6.0-8.3) gm/dl Albumin 4.4 (3.4-5.0) gm/dl Globulin 2.4 L (2.5-4.0) gm/dl Albumin/Globulin Ratio 1.8 (0.9-2) Urine Color Urine Appearance (Clear) Urine pH (4.5-7.5) Ur Specific [place] (1.000-1.030) Urine Protein (Negative) Urine Glucose (UA) (Negative) Urine Ketones (Negative) Urine Blood (Negative) Urine Nitrite (Negative) Urine Bilirubin (Negative) Urine Urobilinogen (Negative) Ur Leukocyte Esterase (Negative) Blood Type Antibody Screen
--- NOTE | 2023-12-30 14:05 | GI REPORT ---
Patient Name: Deyvi Hi Procedure Date: 12/30/2023 1:36 PM Date of : 2000 Admit Type: Inpatient Age: 23 Gender: Male Attending MD: Tracy Alejandre MD, Procedure: Upper GI endoscopy Providers: Tracy Alejandre MD Referring MD: Aristides Spear Indications: Hematemesis Medicines: Propofol per Anesthesia Complications: No immediate complications. Estimated Blood Loss: Estimated blood loss: none. Procedure: Pre-Anesthesia Assessment: - Prior to the procedure, a History and Physical was performed, and patient medications and allergies were reviewed. The patient's tolerance of previous anesthesia was also reviewed. The risks and benefits of the procedure and the sedation options and risks were discussed with the patient. All questions were answered, and informed consent was obtained. Prior Anticoagulants: The patient has taken no anticoagulant or antiplatelet agents. ASA Grade Assessment: I - A normal, healthy patient. After reviewing the risks and benefits, the patient was deemed in satisfactory condition to undergo the procedure. After obtaining informed consent, the endoscope was passed under direct vision. Throughout the procedure, the patient's blood pressure, pulse, and oxygen saturations were monitored continuously. The Endoscope was introduced through the mouth, and advanced to the second part of duodenum. The upper GI endoscopy was accomplished without difficulty. The patient tolerated the procedure well. Findings: Mucosal changes including ringed esophagus and small-caliber esophagus were found in the middle third of the esophagus and in the lower third of the esophagus. Two medium non-bleeding Bibi-Carlson tears, one with stigmata of recent bleeding was found. Area was successfully injected with 4 mL of a 0.1 mg/mL solution of epinephrine for hemostasis. These tears were in the position of "kissing ulcers" seen with pill ulcers The stomach was normal. The examined duodenum was normal. Impression: - Esophageal mucosal changes secondary to eosinophilic esophagitis. - Bibi-Carlson tear. Injected. - Normal stomach. - Normal examined duodenum. - No specimens collected. - Would use liquid carafate if not on it Recommendation: - [facility]. Tracy Alejandre MD 12/30/2023 2:05:06 PM Note Initiated On: 12/30/2023 1:36 PM Number of Addenda: 0 I attest to the content of the Intraoperative Record and orders documented therein, exceptions below {[id number]}
[2023-12-30] MEDS: PROPOFOL IV EMULSION 10 MG/ML 20 ML VIAL IV ONE (15:02)
[2023-12-30] MEDS: LIDOCAINE 2% 2 ML VIAL/AMP(20MG/ML) INFIL ONE ×2 (15:02)
[2023-12-30] MEDS: MIDAZOLAM HCL 1 MG/ML 2ML VIAL ONE (15:03)
--- NOTE | 2023-12-30 15:53 | Anesthesiology Progress Note ---
Date of Service December 30, 2023 Anesthesia Post Procedure Vital Signs Vital Signs: Temp Pulse Pulse Resp BP BP Pulse Ox 12/30/23 15:36 86 12/30/23 14:57 36.8 C 81 18 119/70 98 12/30/23 14:36 88 16 105/72 100 12/30/23 14:18 93 H 18 123/68 100 12/30/23 14:03 100 H 16 123/57 L 99 12/30/23 13:15 37.0 C 74 16 126/73 99 12/30/23 11:13 36.8 C 85 18 99/61 L 98 12/30/23 08:06 114 H 12/30/23 07:29 12/30/23 07:21 36.2 C L 90 18 101/58 L 96 12/30/23 07:12 64 12/30/23 03:56 36.5 C 99 H 18 104/67 98 12/30/23 01:53 107 H 12/29/23 22:02 36.5 C 101 H 18 119/79 100 12/29/23 21:44 12/29/23 20:40 93 H 19 109/87 100 12/29/23 20:30 97 H 21 100 12/29/23 20:20 101 H 18 100 12/29/23 20:10 99 H 22 99 12/29/23 20:00 123/85 12/29/23 20:00 104 H 20 100 12/29/23 19:50 102 H 20 100 12/29/23 19:40 101 H 16 100 12/29/23 19:30 96 H 21 100 12/29/23 19:27 125/78 12/29/23 19:27 117 H 14 12/29/23 19:10 104 H 24 12/29/23 19:00 125 H 23 12/29/23 18:50 103 H 19 100 12/29/23 18:45 141/86 H 12/29/23 18:45 99 H 20 100 12/29/23 18:45 99 H 18 141/86 H 100 12/29/23 18:40 104 H 20 100 12/29/23 18:37 107 H 22 12/29/23 18:20 104 H 21 100 12/29/23 18:10 102 H 21 100 12/29/23 18:00 92 H 24 100 12/29/23 17:50 99 H 24 100 12/29/23 17:40 98 H 22 100 12/29/23 17:30 91 H 20 99 12/29/23 17:20 83 14 99 12/29/23 17:19 96 H 12/29/23 17:10 104 H 22 100 12/29/23 17:09 101 H 21 100 12/29/23 17:04 36.8 C 96 H 18 123/88 99 12/29/23 17:00 101 H 16 123/88 100 O2 Del Method 12/30/23 15:36 12/30/23 14:57 Room Air 12/30/23 14:36 Room Air 12/30/23 14:18 Room Air 12/30/23 14:03 Room Air 12/30/23 13:15 Room Air 12/30/23 11:13 Room Air 12/30/23 08:06 12/30/23 07:29 Room Air 12/30/23 07:21 Room Air 12/30/23 07:12 12/30/23 03:56 Room Air 12/30/23 01:53 12/29/23 22:02 Room Air 12/29/23 21:44 Room Air 12/29/23 20:40 Room Air 12/29/23 20:30 12/29/23 20:20 12/29/23 20:10 12/29/23 20:00 12/29/23 20:00 12/29/23 19:50 12/29/23 19:40 12/29/23 19:30 12/29/23 19:27 12/29/23 19:27 12/29/23 19:10 12/29/23 19:00 12/29/23 18:50 12/29/23 18:45 12/29/23 18:45 12/29/23 18:45 Room Air 12/29/23 18:40 12/29/23 18:37 12/29/23 18:20 12/29/23 18:10 12/29/23 18:00 12/29/23 17:50 12/29/23 17:40 12/29/23 17:30 12/29/23 17:20 12/29/23 17:19 12/29/23 17:10 12/29/23 17:09 12/29/23 17:04 Room Air 12/29/23 17:00 Room Air Transfer of Care Handoff Completed per policy Notes Mental Status: alert / awake / arousable and participated in evaluation Patient Amnestic to Procedure: Yes Nausea / Vomiting: adequately controlled Pain: adequately controlled Airway Patency, RR, SpO2: stable & adequate BP & HR: stable & adequate Hydration State: stable & adequate Anesthetic Complications: no major complications apparent
[2023-12-30] MEDS: SUCRALFATE 1 GM/10 ML UDC PO SCH (16:18)
[2023-12-30] MEDS: INFLUENZA VIRUS QUADRIVALENT VACCINE (IIV4) 0.5 ML SYR IM ONE (20:06)
--- NOTE | 2023-12-31 05:42 | Billing Data ---
Date of Service December 31, 2023 Coding Level of Care Code 79016 INT INP/OBS CARE
--- NOTE | 2023-12-31 08:01 | Hospitalist Progress Note ---
Date of Service December 31, 2023 Assessment & Plan (1) Upper GI bleed: Plan: Summary: Deyvi is a 23M with PMH of GERD, gastric ulcers, and ADHD (on Adderall) who presents for black, loose stools and a pre-syncopal episode and is being admitted for a presumed UGIB. Reported melanic stools x 4 on 12/28, hematemesis x 1. * Patient reported prior hx EGD, inquired for results and his mother sent these given questioned about hx of possible eosinophilic asthma given prior ER visit w/ swelling/shellfish and reports of feeling like food will get stuck at times (resolved with sip of water) * Review prior EGD result sent by his mother --> DID have hx eosinophilic e sophagitis, never had follow up or believes had dilation in the past. Notified GI prior to EGD regarding such * He denied any recent heavy NSAID use but did report he took some Advil with r ecent strep infection ~1 week after THON. Last etoh ~1-2 days ago but reported hadn't drank in about a month and a half prior to that but was drinking 1- 2x/weekly On admission, tachycardic/HTN, LFTs wnl. WBC 8.5k, UA w/ 1+ ketones. CXR without acute process. No pleuritic CP or hypoxia to suggest PE Hgb 11.9 on admission (baseline ~16) Fecal occult POSITIVE s/p 1L NSS in ER, Protonix IV x 1 1L IVF overnight ordered, placed on NS @ 80cc/hr while NPO this morinng for EGD Continue Protonix IV BID NPO IVF NS @ 80cc/hr while NPO Hgb 10.2 on AM labs, suspect some aspect of dilution from IVF on admission, no further bleeding reported GI consulted s/p EGD with Dr Castano 12/29 -- two medium non-bleeding aleena carlson tears, one with stigmata of recent bleeding found. Injected with epi for hemostasis. These tears were in position of "kissing ulcers" seen with pill ulcers. -- Impression: esophageal mucosal changes seconday to eosinophilic esophagitis, aleena-carlson tear injected. normal stomach Recs to continue PPI BID, added liquid carafate QID CM navigator arranging outpt f/u allergy/immunology given his EoE for further work up Clear liquid diet ordered, monitoring overnight Labs in AM Unfortunately will not be able to travel to [place] tomorrow but is hopeful for discharge if stable. Will need strict avoidance of NSAIDs and alcohol at discharge 12/30 No further emesis/hematemesis, no abdominal pain. hgb 10.2--> 9.6 on continuous IVF while awaiting EGD yesterday. Remains on PPI BID, carafate QID. Encouraged avoidance of ALL alcohol/NSAIDs GI to see after procedures but ok w/ advacing diet to as tolerated and possible dc this evening with strict instructions to return if any evidence for rebleeding. Will work on getting him copy of EGD report as well as note for cancelling his flight w/ Navigator. Also working on getting local allergy/immunology f/u for his EoE on EGD. (2) Pre-syncope: Plan: suspected 2nd to dehydration/from nausea/vomiting/diarrhea, Aleena carlson tear as above Had been NSR/sinus tachycardia on monitor. No CP/SOB reported IVF/Protonix as above no further syncope reported and has been ambulating to the bathroom this morning continued telemetry monitoring overnight (3) Aleena-Carlson tear: Plan: as above, s/p EGD with GI and injection with epi continue PPI, carafate added and avoidance of alcohol/NSAIDs encouraged (4) Eosinophilic esophagitis: Plan: hx of such on EGD from 2020 and has had on/off issues w/ feelings of meats getting stuck at times but improved recently. continue PPI BID at dc as well as carafate evidence for ongoing EoE on EGD as above, arranging for allergy f/u at discharge w/ CM (5) GERD (gastroesophageal reflux disease): Plan: as above (6) ADHD: Plan: Continue home Adderall Plan DVT proph: SCDs, ambulation. chemoproph contraindicated given above. No evidence for DVT clear liquids post-EGD, monitoring overnight. potential dc tomorrow 12/30 Admission and Anticipated Discharge Date Admission Date: December 29, 2023 Subjective Evaluated this morning, feeling well. No further emesis, has not moved his bowels since admission. No CP/SOB/lightheaded/dizziness. Would like diet advanced, will touch base w/ GI, Dr Castano to see this afternoon after his procedures. Patient inquiring about possible discharge today but will see, does have risk for re-bleeding but strongly encouraged avoidance of ALL alcohol and NSAIDs during this time and continues on PPI and carafe. Questions/concerns addressed -- he is wondering if able to get color copy of his EGD results as well as note for his parents to cancel his flight. Physical Exam Physical Exam: General: 23yo male sitting up in bed, NAD HEENT head atraumatic, normocephalic, mmm, trachea midline Resp: even/unlabored, no w/c/r, on room air CV: RRR, no significant m/r/g, no pitting edema GI: +BS, soft/NT : no yeung MSK/Neuro: nonfocal, strength equal throughout, answering questions appropriately Psych: AOx3, cooperative with exam Results & Data Results & Data Vital Signs (Past 12 Hours) Vital Signs Temp Pulse Pulse Resp BP BP Pulse Ox 12/31/23 07:43 36.5 C 79 18 109/63 99 12/31/23 07:42 67 12/31/23 03:53 36.3 C L 98 H 18 99/64 L 98 12/30/23 23:29 36.5 C 84 18 108/69 98 12/30/23 23:00 75 O2 Del Method 12/31/23 07:43 Room Air 12/31/23 07:42 12/31/23 03:53 Room Air 12/30/23 23:29 Room Air 12/30/23 23:00 Laboratory Results 12/31/23 Range/Units 06:56 WBC 3.35 L (4.8-10.8) K/ul RBC 3.32 L (4.70-6.10) M/uL Hgb 9.6 L (14.0-18.0) g/dl Hct 27.2 L (42.0-52.0) % MCV 81.9 (80.0-100.0) fL MCH 28.9 (25.0-34.0) pg MCHC 35.3 (32.0-36.0) g/dL RDW Std Deviation 36.4 (36.4-46.3) fL RDW Coeff of Wood 12.2 (11.5-14.5) % Plt Count 170 (130-400) K/uL MPV 10.9 (9.4-12.4) fL Sodium 138 (136-145) mmol/L Potassium 3.9 (3.5-5.1) mmol/L Chloride 106 (98-107) mmol/L Carbon Dioxide 27 (21-32) mmol/L Anion Gap 5 (3-11) BUN 13 (6-23) mg/dl Creatinine 0.90 (0.6-1.4) mg/dl Est Cr Clr Drug Dosing 124.6 ml/min Est GFR ( Amer) 140.0 ml/min Est GFR (Non-Af Amer) 120.8 ml/min BUN/Creatinine Ratio 14.4 (10-20) Glucose 85 (70-99(Fasting)) mg/dl Calcium 8.4 L (8.6-10.3) mg/dl Magnesium 1.9 (1.7-2.4) mg/dl Total Bilirubin 0.9 (0.2-1.0) mg/dl AST 16 (13-39) U/L ALT 17 (7-52) U/L Alkaline Phosphatase 34 (34-104) U/L Total Protein 6.0 (6.0-8.3) gm/dl Albumin 3.8 (3.4-5.0) gm/dl Globulin 2.2 L (2.5-4.0) gm/dl Albumin/Globulin Ratio 1.7 (0.9-2) Diagnostic Findings EGD - aleena carlson tear x 2, injected with epi. Also with appearance of EoE PG Care Time/CCT Total # of Minutes Spent Total Time Spent with Patient: Total time spent is greater than 50% in coordination of care (as documented) at patient's floor/unit and/or counseling patient: Coding Diagnoses Upper GI bleed K92.2 Pre-syncope R55 Aleena-Carlson tear K22.6 Eosinophilic esophagitis K20.0 GERD (gastroesophageal reflux disease) K21.9 ADHD F90.9
[2023-12-31 08:09] LABS: Hematocrit (blood only) 27.2 % (42.0-52.0); Hemoglobin 9.6 g/dl (14.0-18.0); Mean Corpuscular Hemoglobin 28.9 pg (25.0-34.0); Mean Corpuscular Hgb Conc 35.3 g/dL (32.0-36.0); Mean Corpuscular Volume 81.9 fL (80.0-100.0); Mean Platelet Volume 10.9 fL (9.4-12.4); Platelet Count 170 K/uL (130-400); RDW Coefficient of Variation 12.2 % (11.5-14.5); RDW Standard Deviation 36.4 fL (36.4-46.3); Red Blood Count 3.32 M/uL (4.70-6.10); White Blood Count 3.35 K/ul (4.8-10.8)
[2023-12-31 09:23] LABS: Albumin Globulin Ratio 1.7 (0.9-2); Albumin Level 3.8 gm/dl (3.4-5.0); BUN Creatinine Ratio 14.4 (10-20); Bilirubin,Total 0.9 mg/dl (0.2-1.0); Calcium 8.4 mg/dl (8.6-10.3); Creatinine Clr Calc Pharmacy 124.6 ml/min; Est GFR (Non-African American) 120.8 ml/min; Globulin 2.2 gm/dl (2.5-4.0); Magnesium 1.9 mg/dl (1.7-2.4); Potassium 3.9 mmol/L (3.5-5.1)
--- NOTE | 2023-12-31 12:46 | Gastroenterology Progress Note ---
Date of Service December 31, 2023 Assessment & Plan (1) Bibi-Carlson tear: Plan: He is doing well. Discussed with Dr. Roger. Okay to go home after supper if stable. He will follow either in [place] or here at [facility] Admission and Anticipated Discharge Date Admission Date: December 29, 2023 Subjective He is feeling well. No bleeding. No melena. Tolerating full liquid diet Physical Exam Physical Exam: He looks well Constitutional: WD/WN, vitals as above Results & Data Vital Signs (Past 12 Hours) Vital Signs Temp Pulse Pulse Resp BP BP Pulse Ox 12/31/23 11:47 36.9 C 79 18 117/76 98 12/31/23 07:43 36.5 C 79 18 109/63 99 12/31/23 07:42 67 12/31/23 03:53 36.3 C L 98 H 18 99/64 L 98 O2 Del Method 12/31/23 11:47 Room Air 12/31/23 07:43 Room Air 12/31/23 07:42 12/31/23 03:53 Room Air
--- NOTE | 2023-12-31 14:45 | Discharge Summary ---
Date of Service December 31, 2023 Admission HPI Per Admitting Provider Deyvi is a 23M with PMH of gastric ulcers and ADHD (on Adderall) who presents for black, loose stools and a pre-syncopal episode and is being admitted for a presumed UGIB. ED Course: 1L NSS, IV Pantoprazole HPI: Last 12/24/23 started throwing up, thought he ate some bad food, noted he was throwing up small amounts of bright red blood. He went home to his parent's for the weekend (in [place], [place]) and remained nauseous though out the weekend. Today, he woke up and was having black diarrhea (4-5 episodes today). When he went to [facility] due to the black stools, and noted he became very hot/diaphoretic and had a pre-syncopal event, did not fully pass out or fall and hit his head. Received fluids at [facility] but was sent from [facility] to [facility] via ambulance. Feels like he has been increasingly bloated the last 2-3 days with increasing upper abdominal pressure. No lightheadedness or dizziness prior to presenting to [facility]. Notes he has not been eating very much, and hasn't eaten more than a protein bar today. Continued to hydrate well. Notes hx of GERD/Gastric ulcers, had EGD in 11/06/2020 - they found unspecified ulcers at this time, but it was said to be minimal. Took PO medication for 30 days and things have been good since then. Has had no symptoms since 2020. Had gotten EGD in 2020 because he was feeling like things are getting stuck in his throat. No prior episodes of dark black stools before. Will have episodes of hematemesis he has a gagging/dysphagia episode where he throws up/coughs alot. He notes that he can tell when its going to happen because his throat will feel raw. Allergies: Severe anaphylactic fish allergy, requires EpiPen Admission Exam Per Admitting Provider Bibi Sibley Tear x2, eosinophilic esophagitis Principal Diagnosis Gen: NAD, alert, interactive HEENT: Supple, no LAD, no thyromegaly, no JVD Resp:Non-labored, no wheezing/rhonchi/rales, CTAB CV: tachycardic, regular rate, normal S1/S2, no M/R/G Abd: Soft, non-distended, no TTP, normoactive bowels, no masses Extr: 2+ dp bilaterally, no edema Skin: No rashes lesions or erythema Discharge Exam General: 23yo male sitting up in bed, NAD, would like to go home if possible, tolerating diet HEENT head atraumatic, normocephalic, mmm, trachea midline Resp: even/unlabored, no w/c/r, on room air CV: RRR, no significant m/r/g, no pitting edema GI: +BS, soft/NT : no yeung MSK/Neuro: nonfocal, strength equal throughout, answering questions appropriately Psych: AOx3, cooperative with exam Discharge Data Allergies Allergy/AdvReac Type Severity Reaction Status Date / Time Fish Containing Products Allergy Severe Anaphylaxis Verified 12/29/23 19:05 shellfish derived Allergy Severe Anaphylaxis Verified 12/29/23 19:05 Penicillins Allergy Unknown HAPPENED Verified 12/29/23 19:05 AN INFANT Consultations 12/29/23 19:24 ED Decision to Admit Stat 12/29/23 22:14 Consult Gastroenterology Routine 12/31/23 14:44 Burn CD for patient Routine Procedures Performed Operation Date: 12/30/23 16:30 Actual Procedures p EGD Hemostasis - Tracy Alejandre Jr, MD Impression: esophageal mucosal changes secondary to eosinophilic esophagitis, bibi-sibley tear, injected. normal stomach, normal duodenum, no specimens collected. Ordered Studies Chest X-Ray 12/29/23 17:25 XR chest 1V portable HISTORY: 23 years-old Male syncope acute syncope COMPARISON: None TECHNIQUE: AP view of the chest FINDINGS: Cardiomediastinal and hilar silhouettes are within normal limits. No pneumothorax, pleural effusion or airspace consolidation. Bones of the chest appear grossly intact. IMPRESSION: No acute process. ACT 112: Negative or not required by law. The above report was generated using voice recognition software. It may contain grammatical, syntax or spelling errors. Electronically signed by: Chito Myles M.D. 12/29/2023 6:02 PM Hospital Course (1) Upper GI bleed: Summary: Deyvi is a 23M with PMH of GERD, gastric ulcers, and ADHD (on Adderall) who presents for black, loose stools and a pre-syncopal episode and is being admitted for a presumed UGIB. Reported melanic stools x 4 on 12/28, hematemesis x 1. Patient w/ reported prior hx EGD, inquired for results and his mother sent these given questioned about hx of possible eosinophilic asthma given prior ER visit w/ swelling/shellfish and reports of feeling like food will get stuck at times (resolved with sip of water) --> Review prior EGD result sent by his mother confirmed patient DID have hx eosinophilic esophagitis, never had follow up or believes had dilation in the past. Denied heavy alcohol or NSAID use on admission but then did report he took some advil w/ recent strep infection about 3 weeks ago and did have some alcohol about 1-2 days prior to admission Fecal occult positive on admission, placed on protonix IV BID, IVF and npo with GI consultation (Dr Alejandre) and underwent EGD on 12/29 which noted two medium non- bleeding bibi sibely tears, one with stigmata of recent bleeding found. Injected with epi for hemostasis. These tears were in position of "kissing ulcers" seen with pill ulcers. -- Impression: esophageal mucosal changes seconday to eosinophilic esophagitis, bibi-sibley tear injected. normal stomach. Added carafate QID suspension following EGD results and had clear liquid diet advanced to full liquid diet without any further nausea/vomiting. Had been ambulating in the room without further syncopal symptoms. BP stable. Hgb on repeat was 9.6 from 10.2 but had been on continuous IVF while NPO and denied any further bleeding and patient wanting to go home if possible and looked good on exam, no abdominal pain. BUN/Cr and electrolytes stable. Discussed w/ Dr Alejandre and patient able to dc after dinner with regular diet without issue and continue PPI BID and carafate and to return to ER if any signs of re-bleeding. Avoidance of all alcohol and NSAIDs encouraged at discharge CM navigator arranging outpt f/u allergy/immunology given his EoE for further work up (2) Pre-syncope: suspected 2nd to dehydration/from nausea/vomiting/diarrhea, Bibi sibley tear as above. Has been NSR/sinus tachy to 120s when up/ambulating but no further symptoms or bleeding reported. No pleuritic CP or hypoxia or symptoms to suggest PE. Hydration and avoidance of alcohol/NSAIDs as above (3) Bibi-Sibley tear: as above, s/p EGD with GI and injection with epi. continued on PPI BID, carafate as above and continued at mt. Encouraged to avoid NSAIDs/alcohol as above (4) Eosinophilic esophagitis: hx of such on EGD from 2020 and has had on/off issues w/ feelings of meats getting stuck at times but improved recently. continued PPI BID at mt as well as carafate as above for bibi sibley tear, also notedevidence for ongoing EoE on EGD and as outlined, arranging for allergy f/u at discharge w/ nurse navigator (5) GERD (gastroesophageal reflux disease): see above (6) ADHD: continued home meds, suspect relation to his elevated HR when up/ambulating. No CP/SOB/lightheadedness or symptoms prior to dc Plan DVT proph: SCDs, ambulation. no chemoproph given above Discharged on regular diet, PPI BID/Carafate and local vs home GI followup and allergy to be arranged by navigator. Patient instructed NOT to fly to [place], note for airline provided and school note. to return to ER if ANY evidence for bleeding as discussed with patient copy of chart to be provided at mt (from [place]) Total Time Total Time Spent Total Time Spent (In Minutes): 45 Discharge Plan Discharge Items Patient Disposition: Home - Self-Care Reason For Visit: MELANA/SYNCOPE Discharge Diagnosis: Bibi Sibley Tear, GI bleeding Goals: You have been hospitalized for an urgent problem which required surgery. During your stay at [facility], we have made an effort to correct the problem that brought you to the hospital while keeping you as comfortable as possible. Surgery and medications were used to bring your condition under control and your discharge instructions will include directions for any medications you should take after leaving the hospital. Please make sure to follow the advice of your surgeon regarding follow up with the surgeon and with your primary care provider. Activity: As commented below Non-emergency contact: Primary Care Provider, Specialist and Rate Clerk Call non-emergency contact if: you have any medication questions, your symptoms worsen, your pain is not controlled and you have a fever Follow-up/Referrals: Jay Thao MD [Physician] - 01/04/24 10:20 am (Allergy/ Immune appointment) [facility] [Primary Care Provider] - Nelly Padgett DO [Resident] - 01/01/24 10:00 am (9:45 arrival time. Hospital follow up with resident clinic. ) Tracy Alejandre Jr, MD [Physician] - (Office will reach out to schedule) Diet: Regular Addtl Attending Provider Instructions: You have been hospitalized for darkened stools and blood in your vomit. GI was consulted and you underwent endoscopy which showed two small tears in your esophagus as well as eosinophilic esophagitis which was present on your prior endoscopy in 2020. We have used medications called protonix twice a day in the IV as well as oral carafate to help prevent rebleeding after Dr Alejandre injected this with epinephrine. You should AVOID ALL alcohol and NSAIDs (motrin, aleeve, naproxen) during this time and utilize tylenol as needed for pain/headache if needed. Your heart rhythm was normal sinus on monitor and we suspect your syncope episode was related to the GI bleeding from the tear. You should monitor for any repeat bleeding and return to ER immediately if this occurs, or if you have any fever/chills, chest pain, shortness of breath, abdominal pain, nausea/vomiting or for any other symptoms concerning for you. We are working on getting you set up with allergy/immunology at discharge given the eosinophilic esophagitis for further testing/evaluation. Please follow up with [facility] in the next 7-10 days to monit or your progress. It has been a pleasure being a part of the medical team providing for you while you have been in the hospital. Take care! Pending Studies at Discharge: No Stand-Alone Forms: [facility], Smoking Cessation Medications and DC Order Prescriptions: New sucralfate 100 mg/mL Suspension 1 g PO QID 28 Days Qty: 1120 0RF pantoprazole 40 mg tablet,delayed release (DR/EC) 40 mg PO BID Qty: 60 0RF Continued dextroamphetamine-amphetamine [Adderall] 10 mg Tablet 10 mg PO QPM PRN (Reason: HIGH STRESS DAYS) dextroamphetamine-amphetamine 25 mg Capsule,Extended Release 24hr 25 mg PO QAM epinephrine 0.3 mg/0.3 mL auto-injector 0.3 mg IM DIRECTED PRN (Reason: Allergic Reaction) Discharge Orders: Discharge Order (Routine); Ordered 12/31/23 Ordered By: Danisha Caldera/Other Patient Handouts: Pantoprazole Delayed Release Oral Tablet, Sucralfate Oral Suspension, Eosinophilic Esophagitis (EoE) Admission Data Admit Date/Time: 12/29/23 20:59 Attending Provider: Aristides Spear Admit Provider: Nina Son Primary Care Provider: [facility] Other Providers: Moi Plummer; Tracy Alejandre Jr Other Interventions: Discharge Summary Assessment (RN) Last Done: 12/31/23 15:19 Supervising Physician Co-Signing Physician Notes The patient was not seen by me. The chart was reviewed. Case discussed with CINTIA Carrion. Agree with assessment and plan. The patient is medically stable for discharge today, December 30 Coding Level of Care Code 20217 INP/OBS DISCH >30 MIN Diagnoses Upper GI bleed K92.2 Pre-syncope R55 Bibi-Sibley tear K22.6 Eosinophilic esophagitis K20.0 GERD (gastroesophageal reflux disease) K21.9 ADHD F90.9
--- NOTE | 2024-01-01 19:13 | Electrocardiogram Report ---
Test Reason : Blood Pressure : / mmHG Vent. Rate : 101 BPM Atrial Rate : 101 BPM P-R Int : 122 ms QRS Dur : 092 ms QT Int : 310 ms P-R-T Axes : 039 057 021 degrees QTc Int : 401 ms Sinus tachycardia Otherwise normal ECG No previous ECGs available Confirmed by Alex Méndez ([id number]) on 01/01/2024 7:13:29 PM Referred By: REFERRED SELF Confirmed By:Alex Méndez
--- NOTE | 2024-01-02 00:26 | Electrocardiogram Report ---
Test Reason : Blood Pressure : / mmHG Vent. Rate : 075 BPM Atrial Rate : 075 BPM P-R Int : 120 ms QRS Dur : 098 ms QT Int : 356 ms P-R-T Axes : 046 059 034 degrees QTc Int : 397 ms Normal sinus rhythm Normal ECG When compared with ECG of 29-DEC-2023 17:01, (unconfirmed) No significant change was found Confirmed by Alex Méndez ([id number]) on 01/02/2024 12:26:09 AM Referred By: REFERRED SELF Confirmed By:Alex Méndez
== END 2023-12-31 18:40 | disposition home or self-care (01) | DRG 369 ==
LOC: ED 16:52 → 2N 20:59 → SUATTDRO 20:59 → 2N 21:44